=== PATIENT | female | born 1985 | race Two or more races ===

== ENCOUNTER → 2024-04-13 | Outpatient (CLI) | payer MEDICAID, SELFPAY ==
--- NOTE | 2024-04-13 16:42 | XR_ITS ---
Examination: Complete OB ultrasound greater than 14 weeks Date and time of exam: April 13, 2024 1651 hrs. Indications: High risk Findings: Viable intrauterine single fetus with single amniotic sac presentation transverse head maternal right Cardiac motion 155 BPM Placenta posterior grade 1 Umbilical cord insertion 3 vessel seen Amniotic fluid index 12.6 cm spine posterior Cervix 5.7 cm Right ovary 4.0 x 2.4 cm October flow Left ovary 3.2 x 2.5 cm arterial flow. Composite estimated gestational age based on BPD, head circumference, abdominal circumference, femur length is 19 weeks 6 days Estimated weight 308 g. Survey of intracranial anatomy, spinal anatomy, abdominal anatomy, four-chamber heart performed with no abnormalities identified. Impression: Viable intrauterine gestation transverse presentation.
== END | disposition home or self-care (01) ==
LOC: CDIM 16:33
PROVIDERS: Referring Provider Obstetrics & Gynecology; Visit Provider Obstetrics & Gynecology
DX: O32.2XX0 Maternal care for transverse and oblique lie, not applicable or unspecified (principal); Z3A.19 19 weeks gestation of pregnancy
CPT/HCPCS: 76805

== ENCOUNTER 2024-06-17 01:19 | Emergency (ER) | payer MEDICAID, SELFPAY ==
[2024-06-17 01:20] VITALS: BMI 27.3
[2024-06-17 01:30] VITALS: BP 143/93; PULSE 102; RESP 19; TEMP 36.6; O2SAT 98
[2024-06-17 02:59] VITALS: RESP 18
--- NOTE | 2024-06-17 05:38 | EDNOTE_ITS ---
Upper Respiratory Inf. RME/HPI General Chief Complaint: Flu Like Symptoms Stated Complaint: FLU SYMPTOMS Time Seen by Provider: 06/17/24 01:31 Arrival date/time: 06/17/24 01:19 38F with no significant PMH presents to ED with 2 weeks of cough and intermittent facial pain and nasal congestion. Patient is , but denies ab pain and vaginal bleeding. Limitations: no limitations Related Data Home Medications ?Medication ?Instructions ?Recorded ?Confirmed vits no.126-ferrous fum 1 tab PO 1XD 11/03/22 11/03/22 28 mg iron-folic acid 800 mcg tablet (Classic ) Previous Rx's ?Medication ?Instructions ?Recorded amoxicillin 875 mg-potassium 1 tab PO BID 7 days #14 t abs 06/17/24 clavulanate 125 mg tablet Allergies Allergy/AdvReac Type Severity Reaction Status Date / Time milk Allergy Intermediate Hives Verified 09/08/23 09:49 Review of Systems Review of Systems Systems Reviewed: All systems reviewed, normal except as documented Constitutional Constitutional: Reports system reviewed and no additional complaints, except as documented, Denies fever(s) and Denies headache(s) ENT Ears, Nose, Mouth, and Throat: Reports as per HPI, Denies disequilibrium, Reports facial pain, Denies headache(s), Reports nasal congestion and Reports nasal discharge Cardiovascular Cardiovascular: Reports system reviewed and no additional complaints, except as documented, Denies chest pain and Denies dyspnea Respiratory Respiratory: Reports system reviewed and no additional complaints, except as documented, Denies cough and Denies dyspnea Gastrointestinal Gastrointestinal: Reports system reviewed and no additional complaints, except as documented, Denies abdominal pain, Denies nausea and Denies vomiting Neurologic Neurologic: Reports system reviewed and no additional complaints, except as documented, Denies confusion, Denies disequilibrium and Denies headache(s) Psychiatric Psychiatric: Denies confusion Past Medical History Past Medical History NEUROLOGIC: Negative Neurological Disorders CARDIAC: Negative Cardiac Disorders or Congestive Heart Failure RESPIRATORY: Negative Chronic Obstructive Pulmonary Disease (COPD) GASTROINTESTINAL: Negative Gastrointestinal Disorders GENITOURINARY: Negative Genitourinary Disorders or Renal Disease REPRODUCTIVE: Positive Previous Pregnancies; Negative Endometriosis, Genital Herpes, Gonorrhea, Pelvic Inflammatory Disease, Syphilis or Uterine Prolapse MUSCULOSKELETAL: Negative Musculoskeletal Disorders ENDOCRINE: Negative Endocrine Disorders, Diabetes Mellitus Type 1 or Diabetes Mellitus Type 2 HEMATOLOGIC: Negative Blood Disorders OTHER HISTORY: Positive Chicken Pox; Negative Hospitalization, Autoimmune Disease, Down Syndrome, Developmental Delay, Shingles, Falls, Blood Transfusions, Anesthesia Reactions, Organ Transplant, MRSA, VRSA, Vancomycin-Resistant Enterococci or Cancer Family History FAMILY HISTORY: Negative Family Cardiac Disorders Surgical History SURGICAL: Negative Cardiac Surgery, Endocrine Surgery, Ear Surgery, Nephrectomy, Joint Replacement, Neurologic Surgery, Mastectomy, Lumpectomy, Hysterectomy, Tubal Ligation, Section or Organ Transplant Social History SMOKING STATUS: Never smoker ED Exam General Limitations: Present no limitations General appearance: Present alert and in no apparent distress Head Head exam: Present atraumatic Eye Eye exam: Present normal appearance, PERRL and EOMI ENT ENT exam: Present normal oropharynx and mucous membranes moist Expanded ENT Exam Nose exam: Present sinus tenderness Neck Neck exam: Present normal inspection, full ROM and trachea midline Chest Chest inspection: Present normal inspection and symmetric chest wall rise Respiratory Respiratory exam: Present normal lung sounds bilaterally Cardiovascular Cardiovascular exam: Present regular rate, normal rhythm and normal heart sounds Abdominal Exam Abdominal exam: Present soft and normal bowel sounds Extremities Exam Extremities exam: Present normal inspection and full ROM Back Exam Back exam: Present normal inspection and full ROM Neurological Exam Neurological exam: Present alert, oriented X3 and CN II-XII intact Psychiatric Psychiatric exam: Present normal affect and normal mood Skin Skin exam: Present warm, dry, intact and normal color Course Quality Measures none Orders Category Date Time Status Bedside Influenza A&B Antigen Test NOW Care 06/17/24 01:25 Completed Vital Signs Vital signs: Vital Signs Temperature 98 F 06/17/24 01:30 Pulse Rate 102 H 06/17/24 01:30 Respiratory Rate 19 06/17/24 01:30 Blood Pressure 143/93 H 06/17/24 01:30 Pulse Oximetry (%) 98 06/17/24 01:30 Oxygen Delivery Method Room Air 06/17/24 01:30 O2 at 98% on RA and WNLs Upper Respiratory Infection MDM Narrative MDM Narrative:: 38F with no significant PMH presents to ED with 2 weeks of cough and intermittent facial pain and nasal congestion. Patient is , but denies ab pain and vaginal bleeding. Physical exam reveals nasal congestion, but clear lungs. Sinus tenderness. Patient is afebrile, calm, and alert. Swasb neg. Likely sinusitis. Will treat with ABX given status. Patient data External records reviewed:: [facility] previous records Clinical information provided by:: patient Social determinants that could affect healthcare access:: none Patient has the following chronic illnesses:: none How is presenting disease/condition affected by chronic disease/condition?: no chronic disease Evaluation data The following diagnostics were reviewed and interpreted by me:: other (specify) (none) Lab and/or radiology exams considered but not ordered:: ordered Interpretation Summary: above Medications / Prescriptions Medications or Prescriptions considered but not ordered:: not ordered Medication administrations:: n/a Consultations Consultation(s) initiated? (list below): No Diagnosis Upper Respiratory Differential Diagnosis: upper respiratory infection, croup, otitis media, sinusitis, viral infection, bronchitis, influenza and pharyngitis Most likely diagnosis given after review of the tests above:: sinusitis Admission Indicated Admission indicated?: not indicated Admission Request Was there a request for admission?: No Disposition Plan Disposition Plan: Discharge Discharge Attestation Discharge Attestation: The patient and all family members were given an opportunity to ask questions and understood the discharge instructions. Discharge instructions specifically effects, indications for sooner follow up or return to the emergency department, and the expected course of current diagnosis. Patient condition: Stable Discharge Plan Plan Patient Disposition: HOME (Self Care) Prescriptions/Referrals Prescriptions/Med Rec: New amoxicillin-pot clavulanate 875-125 mg tablet 1 tab PO BID 7 Days Qty: 14 0RF No Action Classic 28 mg iron- 800 mcg tablet 1 tab PO 1XD Referrals: No Primary/Family,Physician [Primary Care Provider] - In 1 week Problem List Clinical Impression: Sinusitis Patient/Caregiver Discharge Instructions Education Materials: ED Sinusitis (Antibiotic Treatment) Additional Instructions: Please follow-up with PCP within 24-48 hours and return immediately if symptoms worsen. Print Language: Tajik Stand Alone Forms: Patient Portal Info Letter JOSSELYN/LUCILA Supervising Physician JOSSELYN/LUCILA Supervising Physician: Dr. Grey
== END 2024-06-17 03:00 | disposition home or self-care (01) ==
PROVIDERS: Emergency Provider Emergency Medicine
DX: O99.519 Diseases of the respiratory system complicating pregnancy, unspecified trimester (principal); J32.9 Chronic sinusitis, unspecified; Z3A.00 Weeks of gestation of pregnancy not specified
CPT/HCPCS: 87400; 99283

== ENCOUNTER 2024-08-19 11:23 | Inpatient (IN) | payer MEDICAID, SELFPAY ==
[2024-08-19] VITALS (104 sets, daily range): BP systolic 119–173; BP diastolic 60–103; PULSE 55–83; RESP 16–98; TEMP 36.4–36.6; O2SAT 90–100; BMI 29.9
[2024-08-19 12:33] LABS: Collection Type, Urine Clean Catch
[2024-08-19 12:33] LABS: Basophils % (Auto) 1 % (0-2.5); Eosinophils # (Auto) 0.2 Thou/mm3 (0.0-0.5); Eosinophils % (Auto) 4 % (0-10); Hematocrit 29.4 % (36.0-46.0); Hemoglobin 9.4 g/dL (12.0-16.0); Immature Granulocytes % (Auto) 1 % (0-0); Immature Granulocytes Auto 0.03 Thou/mm3 (0.00-0.00); Lymphocytes % (Auto) 35 % (10-50); Mean Corpuscular Hemoglobin 24.8 pg (25.0-35.0); Mean Corpuscular Volume 78 fL (80-100); Monocytes # (Auto) 0.4 Thou/mm3 (0.0-0.8); Monocytes % (Auto) 8 % (0-12); Neutrophils # (Auto) 2.9 Thou/mm3 (1.8-7.7); Neutrophils % (Auto) 52 % (37-80); Nucleated Red Blood Cell # 0.03 Thou/mm3 (0.00-0.00); Nucleated Red Blood Cell % 1 /100 WBC (0); Platelet Count 218 Thou/mm3 (140-440); RDW Standard Deviation 52.6 fL (36.4-46.3); Red Blood Count 3.79 Miln/mm3 (4.00-5.20); White Blood Count 5.6 Thou/mm3 (3.6-11.0)
[2024-08-19 12:46] LABS: Creatinine,Random Urine 106 mg/dL (30-125)
[2024-08-19 12:52] LABS: Alanine Aminotransferase 11 U/L (10-49); Albumin, Serum 2.4 gm/dL (3.5-5.0); Alkaline Phosphatase 205 U/L (46-116); Anion Gap 9 (7-16); Aspartate Amino Transferase 18 U/L (0-34); BUN/Creatinine Ratio 23 Ratio (12-20); Bilirubin,Total 0.2 mg/dL (0.3-1.2); Blood Urea Nitrogen 14 mg/dL (9-23); Calcium 7.8 mg/dL (8.3-10.6); Calcium (Corrected) 9.1 mg/dL (8.5-10.1); Carbon Dioxide 22.4 mMol/L (20.0-31.0); Chloride 106 mMol/L (98-107); Creatinine (Component) 0.6 mg/dL (0.6-1.3); Globulin 2.3 gm/dL (2.3-3.5); Glucose 96 mg/dL (74-106); Osmolality,Calculated 274 (275-295); Potassium 3.6 mMol/L (3.4-5.1); Sodium 137 mMol/L (136-145); Total Protein 4.7 gm/dL (5.7-8.2); Uric Acid 6.4 mg/dL (3.1-7.8); eGFR > 60 See Note
[2024-08-19 12:53] LABS: Fibrinogen 316 mg/dL (175-375); INR 0.9 (0.9-1.3); Partial Thromboplastin Time 27.2 Seconds (22.0-36.0); Prothrombin Time 10.3 Seconds (9.0-12.2)
[2024-08-19 13:22] LABS: Protein Total, Random Urine 1065 mg/dL (1-14)
[2024-08-19 13:49] LABS: Bacteria,Urine Rare; Bilirubin,Urine Negative (Negative); Blood,Urine Trace (Negative); Clarity,Urine Clear (Clear/Hazy); Color,Urine Yellow (Lt Yel-Yel); Glucose, Urine Negative (Negative); Ketones,Urine Negative (Negative); Leukocyte Esterase,Urine Negative (Negative); Nitrite,Urine Negative (Negative); PH,Urine 7.5 (5.0-7.0); Protein,Urine 3+ (Neg - Trace); RBC,Urine 1 /hpf (0-3); Specific Gravity,Urine 1.026 (1.001-1.035); Squamous Epithelial Cell,Urine 12 /hpf (0-5); Urobilinogen,Urine Negative mg/dL (0.0-1.0); WBC,Urine 3 /hpf (0-5)
--- NOTE | 2024-08-19 14:39 | PC.NURSE ---
Dr. Szymanski called and notified of elevated BPs, 150s/90s with a most current one of 161/100, new orders received for Labetalol IV push protocol 20, 20, 40, 80mg.
--- NOTE | 2024-08-19 14:41 | XR_ITS ---
Examination: age Limited TECHNIQUE: Limited transabdominal sonographic images pelvis Date and time: August 19, 2024 1502 hours INDICATIONS: Labor and delivery, unknown presentation. FINDINGS: presentation cephalic spine maternal left Cardiac motion 124 BPM Estimated weight 2783.7 g Estimated age 35 weeks 1 day IMPRESSION: Viable intrauterine gestation cephalic presentation Estimated weight 2783.7 g Estimated gestational age 35 weeks 1 day
--- NOTE | 2024-08-19 14:42 | PC.NURSE ---
patient stated that she thinks her water bag broke and that she felt wetness. small amount of fluid noted on the sheet as patient transferred from Triage to room 452. Dr. Szymanski notified
[2024-08-19] MEDS: LABETALOL INJ 5 MG/ML VIAL 20 ML 20 MG IVP ×2 (14:51→15:47)
[2024-08-19 15:20] LABS: ROM Kit Lot # 57807112; ROM Swab Mixed By: LEDEM4; Rupture of Fetal Membranes Negative (Negative); Swb Mxed in Solvent 1 min? Yes
[2024-08-19 15:31] LABS: Syphilis Nonreactive (Nonreactive)
[2024-08-19] MEDS: LABETALOL 100 MG TABLET PO (16:03)
[2024-08-19] MEDS: MISOPROSTOL 50 mCg TABLET PO ×2 (16:35→21:00)
[2024-08-19 16:46] LABS: Amphetamine/Metham Scrn,Ur OB Positive (Negative); Amphetamines/Metham U Confirm* See Sep Rpt; Benzoylecgonine Screen, Ur OB Negative (Negative); Opiate Screen,Urine OB Negative (Negative); THC Screen,Urine OB Negative (Negative)
[2024-08-19] MEDS: LABETALOL INJ 5 MG/ML VIAL 20 ML 40 MG IVP (17:10)
[2024-08-19] MEDS: RINGERS LACTATED 1000 ML 1,000 ML 100 ML IV ×2 (17:21→22:13)
[2024-08-19 18:52] LABS: Alcohol, Urine Negative (Negative)
--- NOTE | 2024-08-19 20:20 | PD.LDHP ---
Documentation for date of: 08/19/24 OB Labor/Induct. HPI History of Present Illness Chief complaint: Admission through triage for elevated blood pressures : 5 Para: 4 Term pregnancies: 4 pregnancies: 0 Living children: 4 History of Abortions: Spontaneous and Elective: 0 History of Vaginal deliveries: 4 History of sections: No History of : No SHELLEY: 09/01/24 Gestational Age (weeks): 37 Gestational Age (days): 6 History of present illness: The patient is a 38-year-old G4, P3 at 37 6/7 weeks with all care at [facility] with Dr. Sampson who presented to triage for evaluation with some elevated blood pressures in the office. The patient's blood pressures were elevated in the 150s over 90s in OBT. Preeclamptic labs were all within normal limits with the exception of a urine protein to creatinine ratio (UPCR) of 10 is equivalent to a 24 urine protein of 13,739 mg. Per clinic notes, the patient denies any drug or alcohol use etc. Per ER notes, the patient has been positive for methamphetamines,marijuana ,alcohol and benzos in the past. Her admission drug screen today is positive for methamphetamines. She was admitted for Cytotec induction of labor. Cervical exam on presentation was 2 cm. History of Present Dating criteria: LMP confirmed by 2nd trimester US Adequate Care: Yes (Started at 20 weeks. Unknown group B strep) Ultrasounds: other (No ultrasounds available on records to review) Obstetrical complications: preeclampsia Medical complications: other (AMA, history of polysubstance abuse) Labs Maternal Blood Type: O Pos Labs: Positive: Rubella Titre, Negative: RPR, Hepatitis B, HIV, Chlamydia and Gonorrhea and Unknown: Group Beta Strep Past Medical History Surgical History SURGICAL: Negative Section Meds Home Medications and Allergies Home Medications ?Medication ?Instructions ?Recorded ?Confirmed ?Type vits no.126-ferrous fum 1 tab PO 1XD 11/03/22 08/19/24 History 28 mg iron-folic acid 800 mcg tablet (Classic ) aspirin 81 mg tablet,delayed mg 08/19/24 History release Allergies Allergy/AdvReac Type Severity Reaction Status Date / Time milk Allergy Intermediate Hives Verified 08/19/24 11:27 OB Exam Physical Exam Vital signs: Temp Pulse Resp BP Pulse Ox 97.9 F 64 16 137/78 H 98 08/19/24 12:11 08/19/24 20:07 08/19/24 12:11 08/19/24 20:07 08/19/24 12:33 Detailed Labor and Delivery Exam Dilation (cm): 3 Effacement (%): 70 Cervix position: mid station: -2 Consistency: medium Presentation: Vertex Membranes: ruptured Amniotic fluid: thick meconium monitor accelerations: 15x15 monitor decelerations: None environmental health nurse variability: Average (6-10) Contraction frequency (min): Irregular Contraction intensity: Mild Comments: AROMed at 2029 Partriculate meconium OB Results Labs 08/19/24 12:11 08/19/24 12:11 Labs: Short CBC 08/19/24 Range/Units 12:11 WBC 5.6 (3.6-11.0) Thou/mm3 Hgb 9.4 L (12.0-16.0) g/dL Hct 29.4 L (36.0-46.0) % Plt Count 218 (140-440) Thou/mm3 BMP 08/19/24 12:11 Sodium 137 Potassium 3.6 Chloride 106 Carbon Dioxide 22.4 BUN 14 Creatinine 0.6 Glucose 96 Calcium 7.8 L Liver Function 08/19/24 Range/Units 12:11 Total Bilirubin 0.2 L (0.3-1.2) mg/dL AST 18 (0-34) U/L ALT 11 (10-49) U/L Alkaline Phosphatase 205 H (46-116) U/L Albumin 2.4 L (3.5-5.0) gm/dL Urine 08/19/24 Range/Units 12:15 Urine Color Yellow (Lt Yel-Yel) Urine Clarity Clear (Clear/Hazy) Urine pH 7.5 H (5.0-7.0) Ur Specific [place] 1.026 (1.001-1.035) Urine Protein 3+ A (Neg - Trace) Urine Glucose (UA) Negative (Negative) OB Assessment & Plan Assessment and Plan (1) Supervision of high risk in third trimester: Status: Acute (2) AMA (advanced maternal age) multigravida 35+: Status: Acute (3) Methamphetamine abuse: Status: Acute Assessment and plan: Social work consult (4) Preeclampsia: Status: Acute Assessment and plan: IV labetalol push as needed. Encouraged epidural if patient is in a lot of pain to decrease blood pressures. Continue induction of labor with Cytotec. (2) AMA (advanced maternal age) multigravida 35+ Qualifiers: Trimester: third trimester Qualified Code(s): O09.523 - Supervision of elderly multigravida, third trimester (4) Preeclampsia Qualifiers: Trimester: third trimester Qualified Code(s): O14.93 - Unspecified pre-eclampsia, third trimester
[2024-08-20] VITALS (109 sets, daily range): BP systolic 117–169; BP diastolic 55–91; PULSE 51–93; RESP 17–20; TEMP 36.4–36.8; O2SAT 81–100
[2024-08-20] MEDS: MISOPROSTOL 50 mCg TABLET PO (03:07)
[2024-08-20] MEDS: fentaNYL CIT INJ 50 mCg/ML AMP 2ML 100 MCG IV (03:15)
[2024-08-20] MEDS: Ampicillin Inj 2,000 MG in SODIUM CHLORIDE 0.9% (POP) 100 ML 200 MG IV (04:21)
[2024-08-20] MEDS: LABETALOL 100 MG TABLET PO ×3 (04:25→22:06)
[2024-08-20] MEDS: OXYTOCIN in NS 20 units 20 UNIT/1,000 ML BAG 125 UNIT IV (05:32)
[2024-08-20] MEDS: TRANEXAMIC ACID 1,000 MG IVPB 1,000 MG/100 ML BAG 200 MG IV (05:35)
[2024-08-20] MEDS: BENZO/LANO/ALOE (Dermoplast) 60 GM CAN 1 SPRAY TOP (05:50)
[2024-08-20] MEDS: IBUPROFEN TAB 400 MG TABLET 800 MG PO ×2 (05:50→15:31)
--- NOTE | 2024-08-20 06:53 | PD.LDDELS ---
Data (Shaw) Data Hx Section: No Maternal Blood Type: O Pos Rubella Titre: Positive RPR: Non-reactive Labs: Negative: RPR, Hepatitis B, HIV, Chlamydia and Gonorrhea and Unknown: Group Beta Strep : 5 Term: 4 : 0 Livin Abortions: Spontaneous & Theraputic: 0 Delivery Data (Shaw) Labor Data Initiation of labor: Induction Induction/Augmentation Agent: Cytotec-PO ROM date: 08/19/24 ROM time: 20:28 Amniotic membrane rupture type: Artificial Amniotic fluid description: Moderate Meconium Delivery Data EDC: 09/01/24 EDC calculated by:: LMP Date of arrival to unit: 08/19/24 Onset of labor date: 08/20/24 Onset of labor time: 04:30 Complete dilation date: 08/20/24 Complete dilation time: 05:10 delivery date: 08/20/24 [place] delivery time: 05:28 Gestational age (weeks): 38 Gestational age (days): 5 Placenta delivery date: 08/20/24 Placenta delivery time: 05:30 Stage 1 total time: Labor - Stage 1 Duration 40 minutes Delivered by: Katherine Szymanski (OB Clinic) Delivery nurse: nguyen cosme nurse: yuliana jovel Photo Lab Manager at delivery: No Support person(s) at delivery: FOB- Able Delivery Method Delivery method: Normal Vaginal Delivery Presentation: Vertex position: OA Anesthesia Type Anesthesia Type: None Delivery Room Medications Delivery room medications: Pitocin 20 u IV Placenta Placenta delivery description: Spontaneous Cord blood sent to lab: Yes cord blood collection: Cord Blood Type, Arterial Cord Blood Gas and Venous Cord Blood Gas Episiotomy Episiotomy description: None EBL Estimated blood loss (ml): 150 Umbilical Cord cord description: 3 Vessels Additional Procedures The patient rapidly progressed from 4 cm to complete the nurse was trying to get her an epidural and had called anesthesia and but patient all of a sudden felt the urge to push. Patient pushed less than 5 minutes delivering a liveborn male. Findings liveborn male in the KEYSHA presentation with no nuchal cord and with thick meconium Apgars were 8 and 9 weight was 6 pounds 6 ounces the placenta was complete meconium stained otherwise grossly normal and spontaneous. The patient delivered over an intact perineum. After delivery she was noted to have some brisk bleeding and TXA was called for. Condition mom was in stable condition the delivery room the baby went to the NICU due to rapid breathing and meconium. Cord gases were sent. Complications Complications: none Data (Shaw) [place] Data order: 1 's gender: Male weight (gms): 2890 g Weight (pounds): 6 lbs and 5.9 ozs 1 minute: 8 5 minutes: 9
--- NOTE | 2024-08-20 12:04 | PC.SS ---
BOX STACKER received phone call from OB nurse stating that patient was stating desire to depart AMA and to give up parental rights to .? BOX STACKER met with patient at bedside to discuss concerns.? Patient informed BOX STACKER that she did not wish to participate in discussion at current time.? BOX STACKER acknowledged with patient that given circumstances, recent delivery and ?s possible deficits; impulsive statement might have been generated by the patient.? Patient acknowledged need for time to seek clarity on the matter.? BOX STACKER informed the patient that social work administrator will return later in the day to address matter.? Patient informed BOX STACKER that FOB, Adolfo More ; was present with in NICU.? Patient provided verbal consent to discuss matter with FOB.? BOX STACKER utilized mid level provider to communicate with FOB.? FOB disclosed plan not to terminate parental rights of .? FOB informed BOX STACKER of desire to rear the .? FOB confirmed contact information.? BOX STACKER informed FOB that follow up with patient will be conducted to determine if patient want?s to depart AMA and relinquish parental rights.? BOX STACKER updated bedside nurse and NICU nurse.
[2024-08-20 12:51] LABS: Basophils % (Auto) 0 % (0-2.5); Eosinophils # (Auto) 0.1 Thou/mm3 (0.0-0.5); Eosinophils % (Auto) 1 % (0-10); Hematocrit 27.9 % (36.0-46.0); Hemoglobin 9.2 g/dL (12.0-16.0); Immature Granulocytes % (Auto) 1 % (0-0); Immature Granulocytes Auto 0.08 Thou/mm3 (0.00-0.00); Lymphocytes # (Auto) 2.8 Thou/mm3 (1.0-4.8); Lymphocytes % (Auto) 20 % (10-50); Mean Corpuscular Hemoglobin 24.8 pg (25.0-35.0); Mean Corpuscular Volume 75 fL (80-100); Monocytes # (Auto) 0.8 Thou/mm3 (0.0-0.8); Monocytes % (Auto) 6 % (0-12); Neutrophils # (Auto) 10.1 Thou/mm3 (1.8-7.7); Neutrophils % (Auto) 73 % (37-80); Nucleated Red Blood Cell # 0.04 Thou/mm3 (0.00-0.00); Nucleated Red Blood Cell % 0 /100 WBC (0); Platelet Count 196 Thou/mm3 (140-440); RDW Standard Deviation 51.3 fL (36.4-46.3); Red Blood Count 3.71 Miln/mm3 (4.00-5.20); White Blood Count 13.8 Thou/mm3 (3.6-11.0)
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
--- NOTE | 2024-08-20 16:34 | PC.SS ---
NAVIGATION OFFICER submitted verbal report to CWS due to patient and 's toxicology report positive for methamphetamine. Verbal report provided to CWS staff, Milagros Abreu. CWS informed NAVIGATION OFFICER that if report triggers immediate response CWS will arrive within 2 hours of verbal report submittal. If CWS does not respond immediately within 2 hr timeline a 10 day follow up will be initiated by CWS with no barrier to 's discharge with mother once has met medical clearance. NAVIGATION OFFICER updated bedside nurse.
--- NOTE | 2024-08-20 17:10 | PC.SS ---
CWS report submitted electronically. Copies placed in chart.
[2024-08-21 01:40] VITALS: BP 136/89; PULSE 65; RESP 18; TEMP 37.2; O2SAT 97
[2024-08-21 08:15] VITALS: BP 139/70; PULSE 68; RESP 17; TEMP 36.7; O2SAT 98
[2024-08-21 08:18] VITALS: BP 139/70; PULSE 68
[2024-08-21] MEDS: LABETALOL 100 MG TABLET PO (08:18)
[2024-08-21] MEDS: IBUPROFEN TAB 400 MG TABLET 800 MG PO (08:18)
--- NOTE | 2024-08-21 09:50 | PD.LDPPPRG ---
Subjective Subjective Interval history: Delivery type: , drop-in in labor, patient receives care at [facility]. History of preeclampsia with normal blood pressures since delivery. History of stimulant abuse. Patient doing well this morning. No acute complaints. Ambulating, tolerating p.o. and voiding without difficulty. HTN/Pre-Eclampsia screen: No chest pain, shortness of breath, headache, visual changes, epigastric or right upper quadrant pain. Breast-feeding, lochia diminishing. Bowel: Flatus+/ BM+ Exam Vital Signs Temp Pulse Resp BP Pulse Ox O2 Del Method 98.0 F 68 17 139/70 H 98 Room Air 08/21/24 08:15 08/21/24 08:18 08/21/24 08:15 08/21/24 08:18 08/21/24 08:15 08/20/24 20:20 Constitutional Constitutional: no acute distress Routine HEENT Exam Head: Present normocephalic and atraumatic Eye: Present EOMI and PERRL ENT: Present mucous membranes moist Routine Neck Exam Neck: Present supple and trachea midline Routine Respiratory Exam Respiratory: Present chest non-tender, lungs clear, normal breath sounds and no resp distress Routine Cardiovascular Exam Cardiovascular: Present RRR Routine Abdominal Exam Abdominal: Present soft and normoactive bowel sounds Routine Extremities Exam Extremities: Present full ROM Routine Skin Exam Skin: Present intact, dry and warm Routine Neurological Exam Neurological: Present alert, oriented X3 and CN II-XII intact Routine Psychiatric Exam Psychiatric: Present normal affect and normal thought process Objective Labs 08/20/24 12:36 08/19/24 12:11 Labs: Laboratory Results - last 24 hr 08/20/24 12:36 WBC 13.8 H D RBC 3.71 L Hgb 9.2 L Hct 27.9 L MCV 75 L MCH 24.8 L MCHC 33.0 RDW Std Deviation 51.3 H Plt Count 196 Neut % (Auto) 73 Lymph % (Auto) 20 [place] % (Auto) 6 Eos % (Auto) 1 Baso % (Auto) 0 Neut # (Auto) 10.1 H Lymph # (Auto) 2.8 [place] # (Auto) 0.8 Eos # (Auto) 0.1 Baso # (Auto) 0.0 Immature Gran # (Auto) 0.08 H Absolute Nucleated RBC 0.04 H Immature Gran % 1 H Nucleated RBC % 0 Assessment & Plan Problem List (1) Supervision of high risk in third trimester: Status: Acute (2) AMA (advanced maternal age) multigravida 35+: Status: Acute Assessment and plan: PPD/POD#2 1. Continue routine care 2. Transition to PO meds. 3. Encourage to ambulate/ breast-feed 4. Anticipate discharge home today. 5. Patient will follow-up with her primary/COMMERCIAL LINES SALES EXECUTIVE doctor at [facility] for blood pressure check within 3 days (3) Methamphetamine abuse: Status: Acute (4) Preeclampsia: Status: Acute Time Spent With Patient Time: Total time spent is greater than 50% in coordination of care (as documented) at patient's floor/unit and/or counseling patient:
--- NOTE | 2024-08-21 09:51 | ESDS_ITS ---
DS: Providers Provider Date of admission: 08/19/24 13:47 Primary care physician: Physician No Primary/Family Admitting Provider: Katherine Szymanski [facility] ([facility]) Attending Provider on Admission: Chris Ford MD Consults: 08/20/24 06:58 Referral Routine Comment: Attending Provider on DC: Chris Ford MD Discharging Provider: Chris Ford MD DS: Diagnosis Discharge Diagnosis (1) Preeclampsia: Status: Acute (2) Methamphetamine abuse: Status: Acute Problem List Completed Was Problem List Reviewed/Reconciled?: Yes Summary/Hosp Course Brief History: The patient is a 38-year-old G4, P3 at 37 6/7 weeks with all care at [facility] with Dr. Sampson who presented to triage for evaluation with some elevated blood pressures in the office. The patient's blood pressures were elevated in the 150s over 90s in OBT. Preeclamptic labs were all within normal limits with the exception of a urine protein to creatinine ratio (UPCR) of 10 is equivalent to a 24 urine protein of 13,739 mg. Per clinic notes, the patient denies any drug or alcohol use etc. Per ER notes, the patient has been positive for methamphetamines,marijuana ,alcohol and benzos in the past. Her admission drug screen today is positive for methamphetamines. She was admitted for Cytotec induction of labor. Cervical exam on presentation was 2 cm. Peripartum Data Delivery Method: Normal Vaginal Delivery Episiotomy Description: None Time Spent with Patient Time attestation: Total time spent providing and/or coordinating discharge services: Exam Vital Signs Temp Pulse Resp BP Pulse Ox O2 Del Method 98.0 F 68 17 139/70 H 98 Room Air 08/21/24 08:15 08/21/24 08:18 08/21/24 08:15 08/21/24 08:18 08/21/24 08:15 08/20/24 20:20 Discharge Plan Plan Patient Disposition: HOME (Self Care) Patient condition on transfer: Stable Prescriptions/Referrals Prescriptions/Med Rec: New ibuprofen 400 mg Tablet 800 mg PO Q8H PRN (Reason: See Comments) 10 Days Qty: 30 0RF labetalol 100 mg Tablet 100 mg PO BID 10 Days Qty: 20 0RF docusate sodium [Stool Softener] 100 mg capsule 100 mg PO QDAY 30 Days Qty: 30 0RF Continued Classic 28 mg iron- 800 mcg tablet 1 tab PO 1XD aspirin 81 mg tablet,delayed release (DR/EC) 81 mg PO QDAY Patient Comments: TAKE 2 TABLETS BY MOUTH EVERY DAY Referrals: Chris Ford MD [Physician] - No Primary/Family,Physician [Primary Care Provider] - Patient/Caregiver Discharge Instructions Meds to Beds: Yes Discharge Activity: activity as tolerated Education Materials: After a Vaginal , After Delivery Timpson Concerns, Breast Care After , : Caring for Yourself, Gestational Hypertension Print Language: Slovak Discharge Order Discharge Orders: Discharge (Routine); Ordered 08/21/24 Ordered By: Chris Ford Planned Discharge Date 08/21/24 (1) Preeclampsia Qualifiers: Trimester: third trimester Qualified Code(s): O14.93 - Unspecified pre- eclampsia, third trimester
--- NOTE | 2024-08-21 11:00 | PC.NURSE ---
Laura Cornelius knockdown worker and Bill Mclean medical social consultant here to see patient
--- NOTE | 2024-08-21 13:21 | PC.SS ---
HEAT SEALING MACHINE OPERATOR conducted contact with [facility] staff, Caridad Khan . CWS conducted bedside contact with the patient. CWS informed HEAT SEALING MACHINE OPERATOR that CWS will hold a CFT meeting early next week to determine if infant will be detained or released to mother/relatives with services. currently in NICU. to remain in NICU for minimum of 5 days. CWS will contact HEAT SEALING MACHINE OPERATOR to confirm date of CFT and to provide update on results of meeting. CWS will contact HEAT SEALING MACHINE OPERATOR to confirm if patient can visit while admitted to NICU. Copy of CWS identification placed in chart. HEAT SEALING MACHINE OPERATOR updated bedside nurse.
== END 2024-08-21 13:25 | disposition home or self-care (01) | DRG 560 ==
LOC: S4SX 08-20 07:37 → S4NX 08-20 08:11
PROVIDERS: Admitting Provider Obstetrics & Gynecology; Visit Provider Obstetrics & Gynecology
DX: O14.94 Unspecified pre-eclampsia, complicating childbirth (principal); O99.324 Drug use complicating childbirth; F15.10 Other stimulant abuse, uncomplicated; Z37.0 Single live birth; Z3A.37 37 weeks gestation of pregnancy; O77.0 Labor and delivery complicated by meconium in amniotic fluid
CPT/HCPCS: 36415; 59025; 59409; 76815; 80053; 80307; 80320; 81001; 82570; 84112; 84156; 84550; 85025; 85384; 85610; 85730; 86780; 86850; 86900; 86901; 86923; J0290; J2590; J3010; J3490; J7120; A9270; G0480; J1920

== ENCOUNTER 2024-08-24 09:28 | Emergency (ER) | payer MEDICAID, SELFPAY ==
[2024-08-24 09:29] VITALS: BMI 27.3
--- NOTE | 2024-08-24 11:26 | PC.NURSE ---
PT CALLED AT 11:26 FOR VITALS, NO RESPONSE IN LOBBY OR OUTSIDE
--- NOTE | 2024-08-24 11:40 | PC.NURSE ---
@1140 - PT CALLED FROM ED LOBBY. NO ANSWER. @1200- PT CALLED FROM ED LOBBY AGAIN; NO ANSWER. @1250- PT CALLED FROM ED LOBBY; NO ANSWER. PT ELOPED.
== END 2024-08-24 12:52 | disposition left against medical advice (07) ==
PROVIDERS: Emergency Provider Emergency Medicine
DX: Z53.21 Procedure and treatment not carried out due to patient leaving prior to being seen by health care provider (principal)